=== PATIENT | female | born 1950 | race Caucasian/White ===

== ENCOUNTER 2017-10-06 08:08 | Inpatient (IN) | payer MEDICARE, MEDICAID ==
[2017-10-05 09:12] LABS: MICROSCOPIC NOT IND
[2017-10-05 09:17] LABS: CULTURE INDICATED? NO
[2017-10-05 09:22] LABS: ALANINE AMINOTRANSFERASE 39 U/L (12-78); ALBUMIN 3.7 g/dL (3.4-5.0); ANION GAP 6 mmol/L (5-15); CHLORIDE 101 mmol/L (98-107); CREATININE 1.05 mg/dL (0.55-1.02)
[2017-10-05 09:24] LABS: ALKALINE PHOSPHATASE 52 U/L (45-117); BILIRUBIN,TOTAL 0.9 mg/dL (0.2-1.0); TOTAL PROTEIN 7.4 g/dL (6.4-8.2)
[~2017-10-06] VITALS: Ht 160 cm; Wt 108.0 kg
[~2017-10-06 08:08] MED LIST: ARIP10TA33 PO; ATOR10TA PO; BUSP10TA PO; FLUO60TA PO; HYDR-3245 PO; LOSA25TA5 PO; METF10002 PO; ROTI1PAT TP
[2017-10-06] MEDS ORDERED: LIDOCAINE 1%, 50ML ONE (09:16)
[2017-10-06] MEDS ORDERED: BUPIVACAINE/PF 0.5% ONE ×2 (09:16→12:38)
[2017-10-06] MEDS ORDERED: TRANEXAMIC ACID 100 MG/ML, 10ML ONE (09:17)
[2017-10-06] MEDS ORDERED: methylPREDNISolone SOD SUCC 40 MG/ML ONE (09:17)
[2017-10-06] MEDS ORDERED: EPINEPHRINE 1 MG/ML, 1ML ONE (09:17)
[2017-10-06] MEDS ORDERED: CLINDAMYCIN 150 MG/ML, 6ML ONE ×2 (10:41→12:38)
[2017-10-06] MEDS ORDERED: VANCOMYCIN PER PHARMACY MC ONE (11:00)
[2017-10-06] MEDS ORDERED: LACTATED RINGERS 1,000 ML IV SCH (11:19)
[2017-10-06] MEDS ORDERED: VANCOMYCIN 1,900 MG in SODIUM CHLORIDE 0.9% 250 ML IV ONE (11:30)
[2017-10-06] MEDS ORDERED: OXYcodone IR 5MG TABLET PO ONE (11:30)
[2017-10-06] MEDS ORDERED: GABAPENTIN 400 MG CAPSULE PO ONE (11:30)
[2017-10-06] MEDS ORDERED: ACETAMINOPHEN 500 MG TABLET PO ONE (11:30)
[2017-10-06] MEDS ORDERED: GABAPENTIN 300 MG CAPSULE ONE (11:31)
[2017-10-06] MEDS ORDERED: KETAMINE 10 MG/ML, 20ML ONE (12:08)
[2017-10-06] MEDS ORDERED: MIDAZOLAM 1 MG/ML, 2ML ONE (12:08)
[2017-10-06] MEDS ORDERED: FENTANYL PF 250 MCG/5ML ONE (12:09)
[2017-10-06] MEDS ORDERED: PROPOFOL 10 MG/ML, 20ML ONE (12:12)
[2017-10-06] MEDS ORDERED: DEXAMETHASONE 4 MG/ML, 1ML ONE (12:12)
[2017-10-06] MEDS ORDERED: CEFAZOLIN 1,000 MG ONE (12:12)
[2017-10-06] MEDS ORDERED: BUPIVACAINE/PF 0.25% ONE (12:12)
[2017-10-06] MEDS ORDERED: ONDANSETRON 2MG/ML, 2ML ONE (12:12)
[2017-10-06 12:24] VITALS: BP 147/82
[2017-10-06] MEDS ORDERED: EPHEDRINE 50 MG/ML, 1ML ONE (12:58)
[2017-10-06] MEDS ORDERED: BISACODYL 10 MG SUPP PR PRN (13:00)
[2017-10-06] MEDS ORDERED: HYDROcodone/APAP 10/325 MG TABLET PO PRN (13:00)
[2017-10-06] MEDS ORDERED: DIPHENHYDRAMINE 50 MG CAPSULE PO PRN (13:00)
[2017-10-06] MEDS ORDERED: MAGNESIUM HYDROXIDE 8%, 30ML UDC PO PRN (13:00)
[2017-10-06] MEDS ORDERED: ONDANSETRON 4 MG TABLET PO PRN (13:00)
[2017-10-06] MEDS ORDERED: PROMETHAZINE 12.5 MG SUPP PR PRN (13:00)
[2017-10-06] MEDS ORDERED: PROMETHAZINE 25 MG/ML, 1ML IM PRN (13:00)
[2017-10-06] MEDS: OXYcodone IR 5MG TABLET PO SCH ×4 (13:00→23:55)
[2017-10-06] MEDS ORDERED: SENNA/DOCUSATE TABLET PO PRN (13:00)
[2017-10-06] MEDS ORDERED: morphine SULFATE 10 MG/ML, 1ML IV PRN (13:00)
[2017-10-06] MEDS ORDERED: methylPREDNISolone*ACETATE* 80 MG/ML ONE (13:06)
[2017-10-06] MEDS ORDERED: ONDANSETRON 2MG/ML, 2ML IVPush PRN (14:00)
[2017-10-06] MEDS ORDERED: DIAZEPAM 5 MG/ML, 2ML IVPush PRN (14:00)
[2017-10-06] MEDS ORDERED: ALBUTEROL/IPRATROPIUM 2.5MG/0.5MG, 3 ML NPPB PRN (14:00)
[2017-10-06] MEDS ORDERED: OXYcodone 5 MG/5 ML ORAL.SOL UDC PO PRN (14:00)
[2017-10-06] MEDS ORDERED: HYDROmorphone 1 MG/ML, 1ML IV PRN (14:00)
[2017-10-06] MEDS ORDERED: FENTANYL PF 100 MCG/2ML IV PRN (14:00)
[2017-10-06] MEDS ORDERED: MEPERIDINE/PF 25MG/0.5ML IVPush PRN (14:00)
[2017-10-06] MEDS ORDERED: LABETALOL 5MG/ML, 20ML IV PRN (14:00)
[2017-10-06] MEDS ORDERED: MIDAZOLAM 1 MG/ML, 2ML IV PRN (14:00)
[2017-10-06] MEDS ORDERED: PROMETHAZINE 25 MG/ML, 1ML IV PRN (14:00)
[2017-10-06] MEDS ORDERED: hydrALAzine 20 MG/ML, 1ML IV PRN (14:00)
[2017-10-06] MEDS ORDERED: HYDROmorphone 2 MG/ML, 1ML ONE (14:48)
[2017-10-06 17:30] VITALS: BP 136/79
[2017-10-06] MEDS: SODIUM CHLORIDE 0.9% 1,000 ML IV SCH ×2 (17:51→20:38)
[2017-10-06] MEDS: INSULIN REGULAR 100 UNITS/ML, 3ML VIAL SQ-INSULIN SCH ×2 (17:54→21:53)
[2017-10-06] MEDS ORDERED: VANCOMYCIN PMX 1GM/200ML 200 ML IVPB SCH (18:00)
[2017-10-06] MEDS: DOCUSATE 100 MG CAPSULE PO SCH (20:38)
[2017-10-06 21:24] VITALS: BP 132/69
[2017-10-06 23:50] VITALS: BP 131/75
[2017-10-07] MEDS: OXYcodone IR 5MG TABLET PO SCH ×6 (00:27→20:58)
[2017-10-07 03:40] VITALS: BP 111/59
[2017-10-07 07:18] VITALS: BP 128/62
[2017-10-07] MEDS: DOCUSATE 100 MG CAPSULE PO SCH ×2 (07:36→20:58)
[2017-10-07] MEDS: INSULIN REGULAR 100 UNITS/ML, 3ML VIAL SQ-INSULIN SCH ×4 (07:37→21:13)
[2017-10-07] MEDS: SODIUM CHLORIDE 0.9% 1,000 ML IV SCH ×2 (07:37→16:21)
[2017-10-07] MEDS ORDERED: HYDROcodone/APAP 10/325 MG TABLET PO PRN (10:00)
[2017-10-07] MEDS: LOSARTAN 25MG TABLET PO SCH (11:28)
[2017-10-07] MEDS: ARIPIPRAZOLE 10 MG TABLET PO SCH (11:29)
[2017-10-07] MEDS: FLUOXETINE HCL 20 MG CAPSULE PO SCH (11:29)
[2017-10-07] MEDS: BUSPIRONE 10 MG TABLET PO SCH ×2 (11:29→20:58)
[2017-10-07 12:27] VITALS: BP 154/74
[2017-10-07] MEDS: ROTIGOTINE TD SCH (12:58)
[2017-10-07] MEDS: [UNRECOGNIZED DRUG - OTHER] TD SCH (12:58)
[2017-10-07] MEDS: KETOROLAC 30 MG/1 ML IV SCH ×2 (13:21→20:58)
[2017-10-07] MEDS: DIAZEPAM 5 MG TABLET PO PRN ×3 (15:29→23:50)
[2017-10-07] MEDS: metFORMIN 500 MG TABLET PO SCH (16:31)
[2017-10-07] MEDS: ASPIRIN 325 MG TABLET EC PO SCH (16:31)
[2017-10-07 20:16] VITALS: BP 157/79
[2017-10-07] MEDS ORDERED: INSULIN GLARGINE 100 UNITS/ML, PEN SQ-INSULIN SCH (21:00)
[2017-10-07] MEDS ORDERED: ATORVASTATIN 10 MG TABLET PO SCH (21:00)
[2017-10-08] MEDS: OXYcodone IR 5MG TABLET PO SCH ×3 (01:06→09:21)
[2017-10-08 01:57] VITALS: BP 127/80
[2017-10-08] MEDS: DIAZEPAM 5 MG TABLET PO PRN ×2 (03:52→07:56)
[2017-10-08] MEDS: SODIUM CHLORIDE 0.9% 1,000 ML IV SCH (04:58)
[2017-10-08] MEDS: KETOROLAC 30 MG/1 ML IV SCH (05:05)
[2017-10-08] MEDS: ASPIRIN 325 MG TABLET EC PO SCH (05:05)
[2017-10-08 07:19] VITALS: BP 138/82
[2017-10-08] MEDS: INSULIN REGULAR 100 UNITS/ML, 3ML VIAL SQ-INSULIN SCH (07:54)
[2017-10-08] MEDS: BUSPIRONE 10 MG TABLET PO SCH (07:56)
[2017-10-08] MEDS: DOCUSATE 100 MG CAPSULE PO SCH (07:56)
[2017-10-08] MEDS: metFORMIN 500 MG TABLET PO SCH (07:56)
[2017-10-08] MEDS: FLUOXETINE HCL 20 MG CAPSULE PO SCH (07:56)
[2017-10-08] MEDS: ARIPIPRAZOLE 10 MG TABLET PO SCH (07:56)
[2017-10-08] MEDS: LOSARTAN 25MG TABLET PO SCH (08:01)
[2017-10-08] MEDS: ROTIGOTINE TD SCH (09:22)
[2017-10-08] MEDS: [UNRECOGNIZED DRUG - OTHER] TD SCH (09:22)
== END 2017-10-08 11:12 | disposition home or self-care (01) | DRG 470 ==
LOC: ORIP 10:50 → 4NOR 17:25
PROVIDERS: ADMIT Orthopaedic Surgery; ATTEND Orthopaedic Surgery
PROC: 3E0T3BZ Introduction of Anesthetic Agent into Peripheral Nerves and Plexi, Percutaneous Approach (ICD-10-PCS; 2017-10-06)
PROC: 0SRD069 Replacement of Left Knee Joint with Oxidized Zirconium on Polyethylene Synthetic Substitute, Cemented, Open Approach (ICD-10-PCS; principal; 2017-10-06 12:45)
DX: M17.12 Unilateral primary osteoarthritis, left knee (principal); E66.01 Morbid (severe) obesity due to excess calories; Z68.41 Body mass index [BMI] 40.0-44.9, adult; E11.9 Type 2 diabetes mellitus without complications; F32.9 Major depressive disorder, single episode, unspecified
CPT/HCPCS: 36415; 80053; 81003; 82962; 87081; 87147; 93005; C1713; J0171; J0690; J1100; J1170; J1815; J1885; J2250; J2405; J2704; J3010; J3370; J3490; C1776; J1040; J2920; J7030; J7050; J7120